=== PATIENT | female | born 1990 | race Caucasian/White ===

== ENCOUNTER 2018-11-26 17:58 | Outpatient (CLI) | payer MEDICAID | END 2018-11-26 21:18 | disposition home or self-care (01) | LOC: OBT 17:58 → L-D 17:59 → OBT 21:18 | DX: O62.9 Abnormality of forces of labor, unspecified (principal); Z3A.37 37 weeks gestation of pregnancy | CPT/HCPCS: 76818 ==

== ENCOUNTER 2018-12-04 10:59 | Inpatient (IN) | payer MEDICAID ==
[2018-12-04] MEDS ORDERED: CARBOPROST 250 MCG INJ IM ×2 (11:30→23:30)
[2018-12-04] MEDS ORDERED: METHYLERGONOVINE 0.2 MG INJ IM ×2 (11:30→23:30)
[2018-12-04] MEDS ORDERED: BUTORPHANOL 2 MG INJ IV (11:30)
[2018-12-04] MEDS ORDERED: MISOPROSTOL 200 MCG TAB PR ×2 (11:30→23:30)
[2018-12-04] MEDS ORDERED: OXYTOCIN 30 UNITS/LR 500 ML IV ×2 (11:30→23:30)
[2018-12-04] MEDS: LACTATED RINGER'S 1,000 ML IV ×2 (11:40→20:45)
[2018-12-04 11:49] LABS: ADD MAN DIFF? NO
[2018-12-04 11:53] LABS: WHITE BLOOD COUNT 12.3 10^3/ul (4.8-10.8)
[2018-12-04 11:53] LABS: BASOPHILS % 0.3 % (0.0-2.0); EOSINOPHILS # 0.1 10^3/ul (0.0-0.5); EOSINOPHILS % 0.9 % (0.0-7.0); HEMATOCRIT 39.5 % (37.0-47.0); HEMOGLOBIN 12.9 g/dl (12.0-16.0); LYMPHOCYTES # 1.8 10^3/ul (0.8-2.9); LYMPHOCYTES % 14.9 % (15.0-51.0); MEAN CORPUSCULAR HEMOGLOBIN 29.1 pg (29.0-33.0); MEAN CORPUSCULAR HGB CONC 32.7 g/dl (32.0-37.0); MEAN PLATELET VOLUME 9.7 fl (7.4-10.4); MONOCYTE # 0.8 10^3/ul (0.3-0.9); MONOCYTES % 6.3 % (0.0-11.0); NEUTROPHIL # 9.5 10^3/ul (1.6-7.5); NEUTROPHILS % 76.9 % (39.0-77.0); PLATELET COUNT 217 10^3/UL (140-415); RED BLOOD COUNT 4.44 10^6/ul (4.20-5.40); RED CELL DISTRIBUTION WIDTH 15.3 % (11.5-14.5)
[2018-12-04 12:14] LABS: PROTIME 12.3 Sec (11.9-14.9)
[2018-12-04 12:15] LABS: PARTIAL THROMBOPLASTIN TIME 27.4 Sec (23.0-35.0)
[2018-12-04 12:55] LABS: HEPATITIS B SURFACE ANTIGEN NEGATIVE (NEGATIVE)
[2018-12-04] MEDS: LIDOCAINE 1% (MPF) 30 ML INJ INJ (14:59)
[2018-12-04] MEDS: MINERAL OIL LIGHT 10 ML VIAL TOP (14:59)
[2018-12-04] MEDS: OXYTOCIN 30 UNITS/LR 500 ML IV ×4 (15:00→23:56)
[2018-12-04 18:10] LABS: RAPID PLASMA REAGIN NONREACTIVE (NR)
[2018-12-04] MEDS: IBUPROFEN 600 MG TAB PO (19:32)
[2018-12-04] MEDS ORDERED: OXYCODONE/ASPIRIN (4.88/325) TAB PO (23:30)
[2018-12-04] MEDS ORDERED: ZOLPIDEM 5 MG TAB PO (23:30)
[2018-12-04] MEDS: BENZOCAINE 20% 56 ML SPRAY TOP (23:54)
[2018-12-04] MEDS: WITCH HAZEL/GLYCERIN PAD PR (23:54)
[2018-12-04] MEDS: LANOLIN HPA 1 PKT TOP (23:54)
[2018-12-05] MEDS: IBUPROFEN 600 MG TAB PO ×5 (00:50→17:46)
[2018-12-05] MEDS: LACTATED RINGER'S 1,000 ML IV (03:50)
[2018-12-05 07:46] LABS: ADD MAN DIFF? NO
[2018-12-05 07:50] LABS: BASOPHILS % 0.2 % (0.0-2.0); EOSINOPHILS # 0.2 10^3/ul (0.0-0.5); EOSINOPHILS % 1.6 % (0.0-7.0); HEMATOCRIT 33.9 % (37.0-47.0); HEMOGLOBIN 11.2 g/dl (12.0-16.0); LYMPHOCYTES # 1.9 10^3/ul (0.8-2.9); LYMPHOCYTES % 15.7 % (15.0-51.0); MEAN CORPUSCULAR HEMOGLOBIN 29.5 pg (29.0-33.0); MEAN CORPUSCULAR VOLUME 89.2 fl (82.0-101.0); MONOCYTES % 8.1 % (0.0-11.0); NEUTROPHILS % 73.7 % (39.0-77.0); PLATELET COUNT 156 10^3/UL (140-415); RED CELL DISTRIBUTION WIDTH 15.4 % (11.5-14.5)
[2018-12-05 07:50] LABS: WHITE BLOOD COUNT 12.3 10^3/ul (4.8-10.8)
[2018-12-05] MEDS: SENNA/DOCUSATE NA (8.6MG/50MG) TAB PO ×2 (08:23→21:50)
[2018-12-05] MEDS: MAGNESIUM HYDROXIDE 30ML CUP PO (21:50)
[2018-12-06] MEDS: IBUPROFEN 600 MG TAB PO ×3 (00:35→12:15)
[2018-12-06] MEDS: MAGNESIUM HYDROXIDE 30ML CUP PO (09:00)
[2018-12-06] MEDS: SENNA/DOCUSATE NA (8.6MG/50MG) TAB PO (09:00)
[2018-12-06] MEDS: DIPHTH/TET/ACEL PERTUSS (ADULT) 0.5 ML VIAL IM* (10:16)
[2018-12-06] MEDS: WITCH HAZEL/GLYCERIN PAD PR (12:41)
[2018-12-06] MEDS: BENZOCAINE 20% 56 ML SPRAY TOP (12:41)
[2018-12-06] MEDS: LANOLIN HPA 1 PKT TOP (12:41)
== END 2018-12-06 14:30 | disposition home or self-care (01) | DRG 807 ==
LOC: OBT 10:59 → L-D 11:01 → OBT 11:10 → L-D 11:10 → PP1 20:46
PROVIDERS: Obstetrics & Gynecology
PROC: 10E0XZZ Delivery of Products of Conception, External Approach (ICD-10-PCS; principal; 2018-12-04)
PROC: 0HQ9XZZ Repair Perineum Skin, External Approach (ICD-10-PCS; 2018-12-04)
DX: O70.9 Perineal laceration during delivery, unspecified (principal); Z37.0 Single live birth; Z3A.39 39 weeks gestation of pregnancy; Z23 Encounter for immunization
CPT/HCPCS: 85025; 85610; 85730; 86592; 86850; 86900; 86901; 87340; 90715